=== PATIENT | male | born 1950 | race Caucasian/White ===

== ENCOUNTER 2021-02-14 01:04 | Observation (INO) | payer MEDICARE ==
[2021-02-14] MEDS ORDERED: SODIUM CHLORIDE 0.9% 1,000 ML IV STA (01:23)
[2021-02-14 01:36] LABS: BASOPHILS % (AUTO) 0.4 %; EOSINOPHILS # (AUTO) 0.1 10^3/uL (0.0-0.7); EOSINOPHILS % (AUTO) 0.9 %; HCT - HEMATOCRIT 46.8 % (42.0-52.0); HGB - HEMOGLOBIN 15.3 g/dL (14.0-18.0); LYMPHOCYTES # (AUTO) 3.7 10^3/uL (1.5-3.5); LYMPHOCYTES % (AUTO) 37.4 %; MEAN CORPUSCULAR HEMOGLOBIN 29.5 pg (27.0-31.0); MEAN CORPUSCULAR HGB CONC 32.7 g/dL (32.0-36.0); MEAN CORPUSCULAR VOLUME 90.2 fL (80.0-94.0); MONOCYTES % (AUTO) 9.7 %; NEUTROPHILS # (AUTO) 5.1 10^3/uL (1.5-6.6); NEUTROPHILS % (AUTO) 51.4 %; PLT - PLATELET COUNT 284 10^3/uL (130-450); RED BLOOD COUNT 5.19 10^6/uL (4.70-6.10); RED CELL DISTRIBUTION WIDTH 12.7 % (12.0-15.0)
[2021-02-14 01:50] LABS: ALBUMIN 4.1 g/dL (3.2-5.5); ALBUMIN/GLOBULIN RATIO 1.1 (1.0-2.2); BILIRUBIN,TOTAL 0.4 mg/dL (0.2-1.0); CALCIUM 9.5 mg/dL (8.5-10.3); CREATININE 1.1 mg/dL (0.6-1.2); POTASSIUM 4.3 mmol/L (3.5-5.0); TOTAL PROTEIN 7.8 g/dL (6.7-8.2)
--- NOTE | 2021-02-14 01:59 | ED Physician Documentation ---
History of Present Illness - Stated complaint Stated Complaint: LT ARM PX,LIGHTHEADED - Chief complaint Chief Complaint: Ext Problem - History obtained from History obtained from: Patient - Additonal information Additional information: 70-year-old man with past medical history of coronary disease status post CABG in 1999 p/w Left arm pain intermittent since midnight overnight, lasting about 15 to 30 seconds at a time, aching, dull, localized to the left elbow and arm, nonradiating, a/w dizziness, similar to prior pain when he had his open heart surgery. Patient also has been feeling increased fatigue over the past 2 to 3 days and had a temperature of 100.4 by forehead thermometer last night. Endorses chronic diarrhea that is mildly worsening recently. Patient follows with [facility] cardiology (side laster Dr. Fidel dumont) and had a exercise stress test 1 year ago that was unremarkable. He had a nuclear stress test 5 years ago that showed partial vessel occlusion. denies CP, SOA, nausea, cough, leg swelling or hemoptysis. + intermittent lightheadedness, worse with exertion/movement. Review of Systems Ten Systems: 10 systems reviewed and negative Constitutional: denies: Fever, Chills Cardiac: denies: Palpitations Respiratory: denies: Dyspnea GI: denies: Nausea Musculoskeletal: reports: Extremity pain Neurologic: reports: Generalized weakness, Other (dizziness) PD PAST MEDICAL HISTORY - Past Medical History Past Medical History: Yes Cardiovascular: Coronary artery disease - Past Surgical History Past Surgical History: Yes Cardiovascular: CABG - Allergies Allergies/Adverse Reactions: Allergies Allergy/AdvReac Type Severity Reaction Status Date / Time Iodinated Contrast Media Allergy Anaphylaxis Verified 02/14/21 01:20 - Social History Does the pt smoke?: No Smoking Status: Never smoker Does the pt drink ETOH?: Yes Does the pt have substance abuse?: No - Immunizations Immunizations are current?: No Immunizations: TDAP >10years/unknown PD ED PE NORMAL - Vitals Vital signs reviewed: Yes - General General: Alert and oriented X 3, No acute distress, Well developed/nourished - HEENT HEENT: Atraumatic, PERRL, EOMI - Neck Neck: Supple, no meningeal sign - Cardiac Cardiac: RRR - Respiratory Respiratory: No respiratory distress, Clear bilaterally - Abdomen Abdomen: Non tender, Non distended - Derm Derm: Normal color, Warm and dry - Extremities Extremities: No deformity - Neuro Neuro: Alert and oriented X 3 - Psych Psych: Normal mood, Normal affect Results - Vitals Vitals: Vital Signs - 24 hr 02/14/21 02/14/21 02/14/21 01:15 01:20 01:46 Temperature 36.1 C L Heart Rate 73 73 Heart Rate [ 84 Sitting] Heart Rate [ 85 Standing] Heart Rate [ 70 Supine] Respiratory 18 18 Rate Blood Pressure 128/74 122/90 H Blood Pressure 115/79 [Sitting] Blood Pressure 99/84 H [Standing] Blood Pressure 122/77 [Supine] O2 Saturation 100 98 02/14/21 03:20 Temperature Heart Rate 65 Heart Rate [ Sitting] Heart Rate [ Standing] Heart Rate [ Supine] Respiratory 13 Rate Blood Pressure 131/78 H Blood Pressure [Sitting] Blood Pressure [Standing] Blood Pressure [Supine] O2 Saturation 97 Oxygen O2 Source Room air - EKG (time done) 0122 Rate: Rate (enter#) (71) Rhythm: NSR [place]: Normal Intervals: Normal CA QRS: Normal Ischemia: Normal ST segments - Labs Labs: Laboratory Tests 02/14/21 02/14/21 02/14/21 01:30 01:30 01:30 WBC 10.0 RBC 5.19 Hgb 15.3 Hct 46.8 MCV 90.2 MCH 29.5 MCHC 32.7 RDW 12.7 Plt Count 284 MPV 9.0 Neut # (Auto) 5.1 Lymph # (Auto) 3.7 H [place] # (Auto) 1.0 Eos # (Auto) 0.1 Baso # (Auto) 0.0 Absolute Nucleated RBC 0.00 Nucleated RBC % 0.0 Sodium 137 Potassium 4.3 Chloride 98 L Carbon Dioxide 28 Anion Gap 11.0 BUN 12 Creatinine 1.1 Estimated GFR (MDRD) 66 L Glucose 116 H Calcium 9.5 Total Bilirubin 0.4 AST 25 ALT 21 Alkaline Phosphatase 169 H Troponin I High Sens 4.8 Total Protein 7.8 Albumin 4.1 Globulin 3.7 Albumin/Globulin Ratio 1.1 Lipase 35 Nasal Adenovirus (PCR) Nasal B. parapertussis DNA (PCR) Nasal Coronavir 229E PCR Nasal Coronavir HKU1 PCR Nasal Coronavir NL63 PCR Nasal Coronavir OC43 PCR Nasal Enterovir/Rhinovir PCR Nasal Influenza B PCR Nasal Influenza A PCR Nasal Parainfluen 1 PCR Nasal Parainfluen 2 PCR Nasal Parainfluen 3 PCR Nasal Parainfluen 4 PCR Nasal RSV (PCR) Nasal B.pertussis DNA PCR Nasal C.pneumoniae (PCR) Yury Human Metapneumo PCR Nasal M.pneumoniae (PCR) Nasal SARS-CoV-2 (PCR) 02/14/21 02:38 WBC RBC Hgb Hct MCV MCH MCHC RDW Plt Count MPV Neut # (Auto) Lymph # (Auto) [place] # (Auto) Eos # (Auto) Baso # (Auto) Absolute Nucleated RBC Nucleated RBC % Sodium Potassium Chloride Carbon Dioxide Anion Gap BUN Creatinine Estimated GFR (MDRD) Glucose Calcium Total Bilirubin AST ALT Alkaline Phosphatase Troponin I High Sens Total Protein Albumin Globulin Albumin/Globulin Ratio Lipase Nasal Adenovirus (PCR) NOT DETECTED Nasal B. parapertussis DNA (PCR) NOT DETECTED Nasal Coronavir 229E PCR NOT DETECTED Nasal Coronavir HKU1 PCR NOT DETECTED Nasal Coronavir NL63 PCR NOT DETECTED Nasal Coronavir OC43 PCR NOT DETECTED Nasal Enterovir/Rhinovir PCR NOT DETECTED Nasal Influenza B PCR NOT DETECTED Nasal Influenza A PCR NOT DETECTED Nasal Parainfluen 1 PCR NOT DETECTED Nasal Parainfluen 2 PCR NOT DETECTED Nasal Parainfluen 3 PCR NOT DETECTED Nasal Parainfluen 4 PCR NOT DETECTED Nasal RSV (PCR) NOT DETECTED Nasal B.pertussis DNA PCR NOT DETECTED Nasal C.pneumoniae (PCR) NOT DETECTED Yury Human Metapneumo PCR NOT DETECTED Nasal M.pneumoniae (PCR) NOT DETECTED Nasal SARS-CoV-2 (PCR) NOT DETECTED PD MEDICAL DECISION MAKING - ED course ED course: d/w Dr. More for observation admission, nuclear stress test in AM. Approved by Jaylon CHONG. d/w Jaylon side laster visual education teacher for Dr. Dumont who agrees patient should be admitted for nuclear stress testing. Patient agreeable. Departure - Departure Disposition: ED Place in Observation Clinical Impression: Orthostatic hypotension, Left arm pain, Dizziness, Weakness Condition: Stable
[2021-02-14] MEDS ORDERED: ONDANSETRON ODT 4 MG TABLET TL PRN (02:24)
[2021-02-14] MEDS ORDERED: ACETAMINOPHEN 325 MG TABLET PO PRN (02:24)
[2021-02-14] MEDS ORDERED: SODIUM CHLORIDE FLUSH 0.9% 10 ML SYRINGE IVP PRN (02:24)
[2021-02-14] MEDS ORDERED: oxyCODONE 5 MG TABLET PO PRN (02:24)
[2021-02-14] MEDS ORDERED: ONDANSETRON 4 MG/2 ML VIAL IVP PRN (02:24)
--- NOTE | 2021-02-14 02:32 | HISTORY & PHYSICAL EXAMINATION ---
Chief Complaint - Chief Complaint Chief Complaint: left arm pain and dizzy <Nayana More - Last Filed: 02/14/21 06:47> History of Present Illness - Admitted From Admitted From:: home - History Obtained From Records Reviewed: [facility] History obtained from: Dr. Mathews and patient Exam Limitations: none <Nayana More - Last Filed: 02/14/21 06:47> <Lisandra Edwards - Last Filed: 02/15/21 12:14> - History of Present Illness HPI Comment/Other: This 70-year-old gentleman has not been feeling well for the last 2 to 3 days and has been more fatigued than usual. No chills, nausea, vomiting, abdominal pain. Then at midnight tonight, he began having dizziness, and left arm pain. Brief episodes. The dizziness is worse when he tries to do anything. This is important because in 1999, he had bypass surgery for coronary artery disease that presented with left arm pain and dizziness. Temperature was 36.1. Heart rate was in the 70s. Telemetry noted sinus rhythm. Blood pressure 128/74. Respirations 18 and he was 100% on room air. Orthostatic vital signs were done with supine blood pressure 122/77. Sitting blood pressure 115/79. In standing blood pressure 99/84. Troponin was 4.8. Chest x-ray with no active cardiopulmonary disease. The patient is now placed in observation for anginal equivalent recurrence. He states that his last stress test was a year ago at [facility] and was normal. He does not remember if it was nuclear medicine. (Nayana More) Additional H/P details from patient (Justen Edwards, [facility]) Known CAD, pt has cath report on iphone: 10/1999 PEARCE > LAD, SVG> OM2, OM3. SVG> PDA. His ischemic symptoms at the time he needed bypass were limitied to L arm pain as well. He denie actual CP/pressure, sweats, nausea, jaw pain. or reduced activit tolerance. He has been feeling ok, does play golf, [email or web address] If he thinks about it, maybe hes' had sme dyspnea w/ hills or stairs, ? 5 minutes to recover totally . (he is unsure.) he woke at 12 am w/ the familiar L arm pain. intermittent 5 seconds at a time. NDid not take NTG. Called the [facility], told to take 325 ASA and go to ED. The pain was there intermitteantly 12a-4am. VS in ED as above He did have a TIA ~ 5 yrs ago, lacunar did show up on MRI, has been on Plavix since No ASA Plavix lisinopril 5mg atorvastatin 10 mg (changed from lovastatin due to myalgias) EKG He is Covid vaccinated, had an islated temp of 101.4 a few days ago. No recurrence (Lisandra Edwards) History - Past Medical History Cardiovascular: reports: Coronary artery disease MRSA Hx?: No - Past Surgical History Cardiovascular: reports: CABG <Nayana More - Last Filed: 02/14/21 06:47> - Past Medical History Cardiovascular: reports: Coronary artery disease Respiratory: reports: None, Other (seasonal allergies) Neuro: reports: Tremors (essential tremor on primidone) GI: reports: GERD : reports: None Musculoskeletal: reports: Other (hx myalgias on lovastatin) - Family & Social History Family History: Father: (Dad [place] 50's, Mom CAncer unknown), CAD, Sister: CAD, Brother: Alive and Well (3 brothers alive, but all CAD) Living arrangement: At home (lives w/ in [place], recently moved from [facility], retired intern architect, 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[facility], [facility] ) <Lisandra Edwards - Last Filed: 02/15/21 12:14> Meds/Allgy <Nayana More - Last Filed: 02/14/21 06:47> <Lisandra Edwards - Last Filed: 02/15/21 12:14> - Home Medications Home Medications: Ambulatory Orders Medication Instructions Recorded Confirmed Atorvastatin [Lipitor] 10 mg PO QPM 02/14/21 02/14/21 Clopidogrel [Plavix] 75 mg PO DAILY 02/14/21 02/14/21 Isosorbide Mononitrate ER [Imdur] 30 mg PO DAILY #30 tablet 02/14/21 Pantoprazole [Protonix] 40 mg PO 1700 02/14/21 02/14/21 Primidone [Mysoline] 50 mg PO QPM 02/14/21 02/14/21 Primidone [Mysoline] 250 mg PO DAILY 02/14/21 02/14/21 lisinopriL [Zestril] 5 mg PO DAILY 02/14/21 02/14/21 - Allergies Allergies/Adverse Reactions: Allergies Allergy/AdvReac Type Severity Reaction Status Date / Time Iodinated Contrast Media Allergy Anaphylaxis Verified 02/14/21 01:20 Review of Systems - Constitutional Constitutional: reports: Fatigue (as per HPI), Weight loss (~ 15 lbs, he thinks b/c busy building a house, playing lots of golf) - Eyes Eyes: denies: Field loss, Vision loss, Dipolpia - Cardiovascular Cariovascular: reports: Other (as per HPI) - Respiratory Respiratory: reports: SOB with exertion (as per HPI, if he thinks about it , for months maybe he is more SOB afer hills). denies: Cough, Wheezing, Orthopnea, SOB at rest - Gastrointestinal Gastrointestinal: denies: Abdominal pain, Constipation, Diarrhea, Black stools, Bloody stools, Nausea, Vomiting - Genitourinary Genitourinary: denies: Dysuria, Frequency, Urgency, Incontinence, Flank pain - Musculoskeletal Musculoskeletal: reports: Muscle pain (diffuse) - Neurological Neurological: reports: Other (Has had essential tremor for years, on primidone. REcently was adivsed he would not be candidae for the ultrasound (?) tx bc his essential tremor is so progressed). denies: General weakness, Headache, Memory problems - Endocrine Endocrine: denies: Polyuria, Polydypsia, Polyphagia, Intolerance to heat - Hematologic/Lymphatic Hematologic/Lymphatic: denies: Anemia, Bruising - All Other Systems All Other Systems: reports: Reviewed and negative <Lisandra Edwards E - Last Filed: 02/15/21 12:14> Exam - Vital Signs Reviewed Vital Signs: Yes <Nayana More - Last Filed: 02/14/21 06:47> - Vital Signs Vital Signs: Vital Signs x48h Temp Pulse Pulse Pulse Pulse Pulse Resp 02/14/21 05:04 36.6 C 57 L 12 02/14/21 03:20 65 13 02/14/21 01:46 84 85 70 02/14/21 01:20 73 18 02/14/21 01:15 36.1 C L 73 18 BP BP BP BP BP Pulse Ox 02/14/21 05:04 123/73 97 02/14/21 03:20 131/78 H 97 02/14/21 01:46 115/79 99/84 H 122/77 02/14/21 01:20 122/90 H 98 02/14/21 01:15 128/74 100 Conclusion/Plan - Problem List (1) Anginal equivalent Conclusion/Plan: Presenting his left arm pain and dizziness. These were the same symptoms he had had in the past which resulted in a diagnosis of coronary artery disease and bypass surgery. Patient is currently asymptomatic. EKG is without acute changes. Troponin is normal. Plan: Observation status Rule out [place] with serial troponins Nuclear medicine stress test - Lab Results Scott Jaffe: 02/14/21 01:30 02/14/21 01:30 <Nayana More - Last Filed: 02/14/21 06:47> - Problem List (1) Hx TIA/stroke w/o resid Conclusion/Plan: continue home Plavix (no recent symptoms suggestive of TIA) (2) Hyperlipidemia Conclusion/Plan: continue home statin (3) Essential tremor Conclusion/Plan: stable , continue home primidone (4) GERD (gastroesophageal reflux disease) Conclusion/Plan: stable , continue home PPI - Lab Results Ld: 02/14/21 01:30 02/14/21 01:30 - EKG Results EKG Interpreted Independently: Yes <Lisandra Edwards - Last Filed: 02/15/21 12:14> - EKG Results EKG Findings: NSR 71, TWI inverted V1V2, TW flattening inferiorly. (Lisandra Edwards)
[2021-02-14 03:37] LABS: B. PARAPERTUSSIS- RESP PCR PAN NOT DETECTED; B. PERTUSSIS- RESP PCR PANEL NOT DETECTED; C. PNEUMONIAE- RESP PCR PANEL NOT DETECTED; CORONAVIRUS 229E-RESP PCR NOT DETECTED; CORONAVIRUS HKU1-RESP PCR NOT DETECTED; CORONAVIRUS NL63-RESP PCR NOT DETECTED; CORONAVIRUS OC43-RESP PCR NOT DETECTED; HUMAN METAPNEUMOVIRUS NOT DETECTED; INFLUENZA A- RESP PCR PANEL NOT DETECTED; INFLUENZA B - RESP PCR PANEL NOT DETECTED; M. PNEUMONIAE- RESP PCR PANEL NOT DETECTED; PARAINFLUENZA VIRUS 1 NOT DETECTED; PARAINFLUENZA VIRUS 2 NOT DETECTED; PARAINFLUENZA VIRUS 3 NOT DETECTED; PARAINFLUENZA VIRUS 4 NOT DETECTED; RHINOVIRUS/ENTEROVIRUS NOT DETECTED; RSV- RESP PCR PANEL NOT DETECTED; SARS-CoV-2 -RESP PCR PANEL NOT DETECTED
[2021-02-14] MEDS: SODIUM CHLORIDE FLUSH 0.9% 10 ML SYRINGE IVP SCH ×2 (08:01→16:46)
--- NOTE | 2021-02-14 08:11 | XRAY Report ---
PROCEDURE: Chest 1 View X-Ray INDICATIONS: Chest Pain TECHNIQUE: One view of the chest was acquired. COMPARISON: Sternal wires and hilar clips are present. FINDINGS: Surgical changes and devices: None. Lungs and pleura: No pleural effusions or pneumothorax. Lungs are clear. Mediastinum: Mediastinal contours appear normal. Heart size is enlarged. Bones and chest wall: No suspicious bony lesions. Overlying soft tissues appear unremarkable. IMPRESSION: No acute pulmonary process. The above findings are concordant with preliminary report. Reviewed by: Loraine Wiley MD on 02/14/2021 8:10 AM PDT Approved by: Loraine Wiley MD on 02/14/2021 8:10 AM PDT Station ID: [id number]
--- NOTE | 2021-02-14 08:45 | PHARMACY PROGRESS NOTE ---
- Best Possible Medication History Admit Date and Time: 02/14/21 0224 Processed by: Pharmacy Medication History completed: Yes Patient Interview: Completed (PATIENT ABLE TO CONFIRM HOME MEDICATIONS) As the person ultimately responsible for medication therapy, providers are able to order a medication from an existing home medication list in [facility] via the "Reconcile Routine" prior to Confirmation of that medication by account support manager. Such practice is discouraged except when the physician, in their clinical judgment, deems that a medical need exists for a medication without regard to previous use.
[2021-02-14] MEDS ORDERED: CLOPIDOGREL 75 MG TABLET PO SCH ×2 (11:00→18:00)
[2021-02-14] MEDS ORDERED: PRIMIDONE 50 MG TABLET PO SCH (11:00)
--- NOTE | 2021-02-14 13:23 | Discharge Plan ---
Discharge Plan Problem Reviewed?: Yes Disposition: Home, Self Care Condition: Stable Prescriptions: Isosorbide Mononitrate ER [Imdur] 30 mg PO DAILY #30 tablet Diet: Cardiac Activity Restrictions: No Restrictions Shower Restrictions: No Driving Restrictions: No Weight Bearing: Full Weight Health Concerns: Anginal equivalent/ Left arm pain You came to the hospital with concerns about Left arm pain that wakened you and was reminiscent of the pain you had before your CABG that was your anginal equivalent. You have known coronary disease and have had a multi vessel bypass in 2020. You are on appropriate medications (although you are not on a beta ellis / likely due to modestly low Heart rate, not on optimal statin dose,) Your intiial EKG did not have changes of low blood flow to heart, your blood pressure was well controlled, your heart rate was well controlled . Your oxygen level was adequate on RA. Your chest x ray showed no acute or chronic findings other than some cardiomegaly (enlarged heart, and surgical findings of sternal wires/ clips) Your heart enzymes did not elevate (no leakage of heart enzymes / troponins flat) YOu had a nuclear medicine treadmill stress test with no reproduction of symptoms, and no EKG changes of impaired blood flow to heart with exertion with 91 % maximum predicted heart rate on the stress test. Nuclear imaging; Thee was a moderaate sized, moderately severe, reversible perfusion defect in the inferior lateral wall of the left ventricle compatible with myocardial ischemia. Normal LV volume and systolic function EF 70%. Findings were discussed with [facility] Machine Mover Dieter Miller. He advised a long acting nitrate: Imdur 30 mg (isosorbide mononitrate) and for you to call your raw stock machine feeder DR Randle for follow up this week. He may consider heart catheterization vs medical management You were given a 15 mg dose of the imdur before discharge; Prescription sent to [facility] Imdur can lower blood pressure; take 1/2 the lisinopril dose (2.5 mg) until your blood pressure with the addition of Imdur is evaluated No Smoking: If you smoke, Please STOP! Call for help. Follow-up with: TOSHA RANDLE MD [Physician No Access] -
--- NOTE | 2021-02-14 15:03 | CARDIAC PROCEDURE NOTE ---
Stress Test Report Service Date: 02/14/21 Ordering Provider: Dr Nagy, [facility] (Dr. Fidel Randle) Indication for Test: Chest pain (left arm pain, similar to what he had before needing CABG) Significant Medical History: 70-year-old white male, prior history of CAD requiring CABG. Cardiac Risk Factors: Male gender, advanced age, HTN, hyperlipidemia, Family history of heart disease at an early age Type of Stress Test: ETT with Myocardial Perfusion Imaging Procedure: After signing informed consent, the patient underwent a Malachi-protocol treadmill stress test with nuclear myocardial perfusion imaging. Resting heart rate: 65 Peak HR: 135 (91% pred max HR for age) Resting blood pressure: 120/71. Peak blood pressure: 187/79 The patient exercised for 5 minutes and 43 seconds on a Malachi-protocol treadmill stress test. He achieved a peak heart rate of 135 (91% predicted maximum heart rate for age), and 7.05 METS. The patient had mild to moderate shortness of breath at peak, he experienced no chest pain and no left arm pain (which was his anginal symptom before needing CABG). He rated his perceived exertion at 11-14 on the Dayanna scale at peak. Normal heart rate and blood pressure response to exercise. No significant arrhythmias were seen. Resting EKG: Normal sinus rhythm, rate 65, left atrial enlargement, otherwise within normal limits. Peak EK mm upsloping ST segment depressions were seen in leads II, V5 and V6 (not specific for ischemia). Summary: 1) Normal resting EKG 2) Adequate level of stress achieved during this Malachi-protocol treadmill test 3) Non-specific ST segment changes noted by EKG criteria 4) Nuclear images were reported separately and showed: a reversible defect is seen of the infrero-lateral wall 5) This patient's cardiac risk: Moderate-High, given abnormal results of nuclear imaging
--- NOTE | 2021-02-14 17:26 | Nuclear Medicine Report ---
PROCEDURE: Rest and exercise myocardial perfusion SPECT with gated imaging and ejection fraction INDICATIONS: left arm pain, dizzy RADIOPHARMACEUTICAL: 10.2 mCi Tc-99m Myoview IV at rest and 31.0 mCi Tc-99m Myoview IV at peak exerc ise. [id number] was performed. TECHNIQUE: Radiopharmaceutical was injected at peak stress test, and also at rest. SPECT images wer e obtained. SPECT myocardial perfusion images were displayed in short axis, horizontal long axis, an d vertical long axis views. Gated images were reviewed using AutoQUANT software. COMPARISON: None available. FINDINGS: Raw data: There is good myocardial labeling by radiotracer. No significant motion artifacts. Lung- to-heart ratio is 0.34 (normal is less than 0.46 for tetrafosmin tracer). Left ventricle function: Gated images demonstrate normal left ventricle wall thickening. No segment al wall motion abnormality. No transient ischemic dilation; TID is 0.86 (normal less than 1.30). Th e left ventricle resting end-diastolic volume is normal. Left ventricle stress ejection fraction is >70%; normal values are above 45%. Myocardial perfusion: There is a moderate size, moderately severe, reversible perfusion defect in th e inferior lateral wall of the left ventricle with myocardial ischemia. On prone imaging, the inferio r lateral perfusion defect is improved but not resolved. IMPRESSION: 1. Abnormal myocardial perfusion images. There is a moderate size, moderately severe, reversible perf usion defect in the inferior lateral wall of the left ventricle compatible with myocardial ischemia. 2. Normal left ventricular volume and systolic function. 3. Please correlate stress EKG result. The result was discussed with Dr. Scaels. PQRS ATTESTATIONS: Measure 322 - Is this imaging test primarily performed on a low-risk surgery patient for preoperative evaluation within 30 days preceding their low-risk non-cardiac surgery? Low-risk surgery is defined as cardiac or myocardial infarction less than 1%, including (but not limited to) endoscopic pr ocedures, superficial procedures, cataract surgery, and excisional breast surgery: Answer: No Measure 323 - Is this imaging test performed primarily for the monitoring of an asymptomatic patient who had percutaneous coronary intervention on the visit date or within 2 years of the visit date? An swer: No Measure 324 - Is this imaging test performed primarily for the initial detection and risk assessment on an asymptomatic, low coronary heart disease patient? Low CHD risk definition = clinicians should consider the maximum number of available patient factors used to estimate risk based on [place] (A TP III criteria), typically age, gender, diabetes, smoking status, and use of blood pressure medicati on, and integrate age appropriate estimates for missing elements, such as LDL or standard blood press ure. Answer: No Reviewed by: Brunilda Lopez MD on 02/14/2021 5:25 PM PDT Approved by: Brunilda Lopez MD on 02/14/2021 5:25 PM PDT Station ID: [id number]
[2021-02-14] MEDS ORDERED: ISOSORBIDE MONONITRATE ER 30 MG TABLET PO ONE (18:45)
[2021-02-14 18:52] VITALS: BP 132/81
[2021-02-14] MEDS ORDERED: ATORVASTATIN 10 MG TABLET PO SCH (21:00)
--- NOTE | 2021-02-15 15:27 | DISCHARGE SUMMARY ---
"Discharge Summary Admit Date: 02/14/21 Discharge Date: 02/14/21 Discharging Provider: MORE Carballo Primary Care Provider: Fidel Randle MD [facility] Code Status: Attempt Resuscitation Condition at Discharge: Stable Discharge Disposition: 01 Home, Self Care Discharge Facility Name: [facility] - DIAGNOSES Admission Diagnoses: Anginal Equivalent History of CAD History of TIA GERD Essential Tremor Discharge Diagnoses with Status of Each Condition: Anginal Equivalent ; + reversible inferolateral defect on stress thallium; medical management History of CAD; stable, medical management History of TIA; no recurrent symptoms continues plavix GERD; stable Essential Tremor stable - HPI History of Present Illness: This 70-year-old gentleman has not been feeling well for the last 2 to 3 days and has been more fatigued than usual. No chills, nausea, vomiting, abdominal pain. Then at midnight tonight, he began having dizziness, and left arm pain. Brief episodes. The dizziness is worse when he tries to do anything. This is important because in 1999, he had bypass surgery for coronary artery disease that presented with left arm pain and dizziness. Temperature was 36.1. Heart rate was in the 70s. Telemetry noted sinus rhythm. Blood pressure 128/74. Respirations 18 and he was 100% on room air. Orthostatic vital signs were done with supine blood pressure 122/77. Sitting blood pressure 115/79. In standing blood pressure 99/84. Troponin was 4.8. Chest x-ray with no active cardiopulmonary disease. The patient is now placed in observation for anginal equivalent recurrence. He states that his last stress test was a year ago at [facility] and was normal. He does not remember if it was nuclear medicine. (Nayana More) Additional H/P details from patient (MORE Velazquez) Known CAD, pt has cath report on iphone: 10/1999 PEARCE > LAD, SVG> OM2, OM3. SVG> PDA. His ischemic symptoms at the time he needed bypass were limitied to L arm pain as well. He denie actual CP/pressure, sweats, nausea, jaw pain. or reduced activit tolerance. He has been feeling ok, does play golf, [facility] If he thinks about it, maybe hes' had sme dyspnea w/ hills or stairs, ? 5 minutes to recover totally . (he is unsure.) he woke at 12 am w/ the familiar L arm pain. intermittent 5 seconds at a time. NDid not take NTG. Called the [facility] line, told to take 325 ASA and go to ED. The pain was there intermitteantly 12a-4am. VS in ED as above 12 lead EKG on admit Rsting EKG: NSR rate 65, LAE, other porter normal troponins flat He did have a TIA ~ 5 yrs ago, lacunar did show up on MRI, has been on Plavix since No ASA Plavix lisinopril 5mg atorvastatin 10 mg (changed from lovastatin due to myalgias) EKG He is Covid vaccinated, had an islated temp of 101.4 a few days ago. No recurrence - CONSULTS | PROCEDURES Consultations: cardiology; informal [facility] Procedures: nuclear medicine stress thallium; - HOSPITAL COURSE Hospital Course: 1) Anginal equivalent/ Left arm pain in patient with known CAD and Positive inferolateral reversible defect on stress thallium. Troponins remained flat. Admit EKG w/o acute ischemic changes. CXR showed CM, surgical findings/ sternal wires/clips but no acute or chronic findings otherwise After patient ruled out, he underwent a treadmill thallium w/ details below achieving 7 METS and 91% MPHR. There were no symptom reproductions nor ischemic changes. However nuclear images showed a a moderaate sized, moderately severe, reversible perfusion defect in the inferior lateral wall of the left ventricle compatible with myocardial ischemia. Normal LV volume and systolic function EF 70% Findings were discussed with [facility] Business Solution Analyst Dieter Miller. He advised a long acting nitrate: Imdur 30 mg (isosorbide mononitrate) and for patient to call [place] program technician [place] Fidel Randle for follow up this week. He may consider heart catheterization vs medical management . Patient given a 15 mg dose of the imdur before discharge; He is on appropriate medications (although you are not on a beta ellis / likely due to modestly low Heart rate, not on optimal statin dose,) He should follow up with Dr Randle next week - ALLERGIES Allergies/Adverse Reactions: Allergies Allergy/AdvReac Type Severity Reaction Status Date / Time Iodinated Contrast Media Allergy Anaphylaxis Verified 02/14/21 01:20 - MEDICATIONS Home Medications: Ambulatory Orders Medication Instructions Recorded Confirmed Atorvastatin [Lipitor] 10 mg PO QPM 02/14/21 02/14/21 Clopidogrel [Plavix] 75 mg PO DAILY 02/14/21 02/14/21 Isosorbide Mononitrate ER [Imdur] 30 mg PO DAILY #30 tablet 02/14/21 Pantoprazole [Protonix] 40 mg PO 1700 02/14/21 02/14/21 Primidone [Mysoline] 50 mg PO QPM 02/14/21 02/14/21 Primidone [Mysoline] 250 mg PO DAILY 02/14/21 02/14/21 lisinopriL [Zestril] 5 mg PO DAILY 02/14/21 02/14/21 - PHYSICAL EXAM AT DISCHARGE General Appearance: positive: No acute distress, Alert, Other Eyes Bilateral: positive: Normal inspection Respiratory: positive: Chest non-tender, No respiratory distress, Breath sounds nml Cardiovascular: positive: Regular rate & rhythm, No murmur, Other (sternal open heart scar well healed) Abdomen: positive: Nml bowel sounds, No distention. negative: Tenderness Skin: positive: Warm, Dry Extremities: negative: Pedal edema Neurologic/Psychiatric: positive: Oriented x3, Mood/affect nml, Other (patient demonstrates tremor eg when holds iphone, Awake, alert, demonstrates fairly good detail of symptoms and acknowledges understanding discharge instructions) - LABS Result Diagrams: 02/14/21 01:30 02/14/21 01:30 - DIAGNOSTIC IMAGING Diagnostic Imaging Results: Final report reviewed Diagnostic Imaging Results Comments: Stress Thallium; The patient exercised for 5 minutes and 43 seconds on a Malachi- protocol treadmill stress test. He achieved a peak heart rate of 135 (91% predicted maximum heart rate for age), and 7.05 METS. The patient had mild to moderate shortness of breath at peak, he experienced no chest pain and no left arm pain (which was his anginal symptom before needing CABG). He rated his perceived exertion at 11-14 on the Dayanna scale at peak. Normal heart rate and blood pressure response to exercise. No significant arrhythmias were seen. SUMMARY 1) Normal resting EKG 2) Adequate level of stress achieved during this Malachi-protocol treadmill test 3) Non-specific ST segment changes noted by EKG criteria (Resting EKG: Normal sinus rhythm, rate 65, left atrial enlargement, otherwise within normal limits. Peak EK mm upsloping ST segment depressions were seen in leads II, V5 and V6 (not specific for ischemia). 4) Nuclear images; moderate sized, moderatly severe reversible perfusion defect inferolateral wall of the LV c/w myocardial ischemia. Gatd images show normal LV wall thickening. No WMA. LV resting EDV normal LVEF 70% 5) This patient's cardiac risk: Moderate-High, given abnormal results of nuclear imaging Chest X ray; no acute findings, cardiomegaly, sternal clips / wires."
== END 2021-02-14 19:20 | disposition home or self-care (01) ==
LOC: ED 01:04 → MS2 02:24
PROVIDERS: ADMIT Specialist; ATTEND Nurse Practitioner
DX: I20.8 Other forms of angina pectoris (principal); M79.602 Pain in left arm; R42 Dizziness and giddiness; I10 Essential (primary) hypertension; R53.83 Other fatigue; Z86.73 Personal history of transient ischemic attack (TIA), and cerebral infarction without residual deficits; K21.9 Gastro-esophageal reflux disease without esophagitis; G25.0 Essential tremor; R94.39 Abnormal result of other cardiovascular function study; Z95.1 Presence of aortocoronary bypass graft; E78.5 Hyperlipidemia, unspecified; Z20.822 Contact with and (suspected) exposure to COVID-19
CPT/HCPCS: 36415; 71045; 78452; 80053; 83690; 84484; 85025; 87631; 93005; 93017; 99285; A9270; A9500; G0378; 0202U

== ENCOUNTER 2021-03-29 12:48 | Outpatient (CLI) | payer MEDICARE | END 2021-03-29 12:49 | disposition home or self-care (01) | LOC: COV 12:48 | PROVIDERS: ATTEND Family Medicine | DX: Z20.822 Contact with and (suspected) exposure to COVID-19 (principal) ==